=== PATIENT | female | born 1980 | race Caucasian/White ===

== ENCOUNTER 2020-03-12 14:58 | Emergency (ER) | payer OTHER ==
[2020-03-12 15:10] VITALS: BP 90/57; PULSE 69; BMI 22.3
--- OUTSIDE RECORDS SUMMARY | 2020-03-12 15:19 | XMS ---
:1980 Author Organization [facility] Support Name Relationship Address Phone SE Unavailable Unavailable Unavailable [employer] [address] [place] [address] Re-disclosure Warning The records that you are about to access may contain information from federally- assisted alcohol or drug abuse programs. If such information is present, then the following federally mandated warning applies: This information has been disclosed to you from records protected by federal confidentiality rules (42 CFR part 2). The federal rules prohibit you from making any further disclosure of this information unless further disclosure is expressly permitted by the written consent of the person to whom it pertains or as otherwise permitted by 42 CFR part 2. A general authorization for the release of medical or other information is NOT sufficient for this purpose. The Federal rules restrict any use of the information to criminally investigate or prosecute any alcohol or drug abuse patient.The records that you are about to access may contain highly sensitive health information, the redisclosure of which is protected by Article 27-F of the [facility] Public Health law. If you continue you may haveaccess to information: Regarding HIV / AIDS; Provided by facilities licensed or operated by the [facility] Office of Mental Health; or Provided by the [facility] Office for People With Developmental Disabilities. If such information is present, then the following [facility] mandated warning applies: This information has been disclosed to you from confidential records which are protected by state law. State law prohibits you from making any further disclosure of this information without the specific written consent of the person to whom it pertains, or as otherwise permitted by law. Any unauthorized further disclosure in violation of state law may result in a fine or longterm sentence or both. A general authorization for the release of medical or other information is NOT sufficient authorization for further disclosure. Insurance Providers Payer name Policy type Policy ID Covered Covered green party's Policy P felicia / Coverage green party ID relationship to [employer] type martinez [facility] [id number] SP [id number] FIRST Results ID Date Data Source [id number] 12/16/2019 05:30:00 PM EDT [facility] Name Value Range Interpretation Description Data Sup porting Code Source(s) Document(s ) SARS-CoV-2 [facility] (COVID-19) RNA [Presence] in Respiratory specimen by HELEN with probe detection This lab was ordered by [facility] and reported by [facility] Procedure
[2020-03-12] MEDS ORDERED: DIPHTH,PERTUSS(ACELL),TET 0.5 ML DISP.SYRIN IM ONE ×2 (16:09→16:29)
--- NOTE | 2020-03-12 16:28 | PDOC ---
History of Present Illness - General Chief Complaint: Laceration Stated Complaint: INJURY Time Seen by Provider: 03/12/20 15:31 History Source: Patient Exam Limitations: No Limitations - History of Present Illness Initial Comments: 03/12/20 16:23 HISTORY OF PRESENT ILLNESS: 40-year-old woman denies medical history presents to the emergency department for evaluation of laceration to the left thumb while preparing lunch today. Patient states she was making a salad and was cutting through peppers she accidentally sliced through the distal tip of her left thumb. Patient cleaned out her thumb with tap water and iodine and then applied sterile dressing and ice to thumb prior to arrival in the ER. Patient is right- hand dominant. 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 No recent travel or sick contacts. PAST MEDICAL HISTORY: Denies past medical history SURGICAL HISTORY: Denies ALLERGIES: No known drug allergies REVIEW OF SYSTEMS General/Constitutional: Denies fever or chills. Denies weakness, weight change. HEENT: Denies change in vision. Denies ear pain or discharge. Denies sore throat. Cardiovascular: Denies chest pain or shortness of breath. Respiratory: Denies cough, wheezing, or hemoptysis. Gastrointestinal: Denies nausea, vomiting, diarrhea or constipation. Denies rectal bleeding. Genitourinary: Denies dysuria, frequency, or change in urination. Musculoskeletal: Denies joint or muscle swelling or pain. Denies neck or back pain. Skin and breasts: See HPI Neurologic: Denies headache, vertigo, loss of consciousness, or loss of sensation. Psychiatric: Denies depression or anxiety. Endocrine: Denies increased thirst. Denies abnormal weight change. Hematologic/Lymphatic: Denies anemia, easy bleeding, or history of blood clots. Allergic/Immunologic: Denies hives or skin allergy. Denies latex allergy. PHYSICAL EXAM General Appearance: Well-appearing, appropriately dressed. No apparent distress, no intoxication. Musculoskeletal/Extremities: Normal inspection. FROM of all extremities, normal capillary refill. Pelvis Stable. No CVA tenderness. No tenderness to extremities, pedal edema, swelling, erythema or deformity. Integumentary: Approximate 1 cm superficial linear laceration present to distal tip of the left thumb. Laceration extends through the nail and into the nailbed but is linear and fingernail is maintaining approximation. Neurovascularly intact. Past History - Medical History Allergies/Adverse Reactions: Allergies Allergy/AdvReac Type Severity Reaction Status Date / Time No Known Allergies Allergy Verified 03/12/20 15:10 COPD: No - Reproductive History Is Patient Now?: No - Psycho-Social/Smoking History Smoking History: Never smoked *Physical Exam - Vital Signs Last Vital Signs Temp Pulse Resp BP Pulse Ox 69 18 90/57 L 100 03/12/20 15:09 03/12/20 15:09 03/12/20 15:09 03/12/20 15:09 Procedures - Consent Consent obtained: Verbal, From Patient - Laceration/Wound Repair Left Distal Finger 1st digit Wound Length: to 2.5 cm Wound Explored: clean Wound's Depth, Shape: superficial, linear Irrigated w/ Saline: Yes Betadine Prep: Yes Anesthesia: 1% Lidocaine Amount of Anesthetic (ccs): 4 Wound Debrided: minimal Wound Repaired With: Sutures Suture Size/Type: 5:0 Number of Sutures: 3 Layer Closure: No Sterile Dressing Applied: Yes Splint Applied: No Sling Applied: No Progress: 03/12/20 16:30 Patient tolerated well Medical Decision Making - Medical Decision Making 03/12/20 16:26 A/P: 40-year-old female with laceration to distal tip of the left thumb Laceration repair-see procedure note for details [facility] Discharge home Portions of this note have been documented using voice recognition software. As a result, errors may occur in the information assurance process. Effort has been made to correct all grammatical and information assurance error, but some may have been missed which may produce sporadic inaccurate information assurance or nonsensical phrases. Discharge - Discharge Information Problems reviewed: Yes Clinical Impression/Diagnosis: Laceration of left thumb with damage to nail Qualifiers: Encounter type: initial encounter Foreign body presence: without foreign body Qualified Code(s): S61.112A - Laceration without foreign body of left thumb with damage to nail, initial encounter Condition: Stable Disposition: HOME - Admission No - Follow up/Referral Referrals: Phuong Seo [Primary Care Provider] - - Patient Discharge Instructions Additional Instructions: Keep wound clean and dry Avoid strenuous activity/exercise to create a hot or sweaty environment until sutures are removed Reapply bacitracin ointment 2 times a day until sutures are removed Return to emergency Department or private physician in 7-10 days for suture removal May use Tylenol or Motrin for pain relief Return immediately to emergency department for redness, swelling, pain, or signs of infection - Post Discharge Activity Work/Back to School Note: Back to Work
== END 2020-03-12 17:05 | disposition home or self-care (01) ==
LOC: JERFT 14:58 → JER 14:58 → JERFT 17:05
PROC: 0HQGXZZ Repair Left Hand Skin, External Approach (ICD-10-PCS; principal; 2020-03-12)
PROC: 3E0234Z Introduction of Serum, Toxoid and Vaccine into Muscle, Percutaneous Approach (ICD-10-PCS; 2020-03-12)
DX: S61.112A Laceration without foreign body of left thumb with damage to nail, initial encounter (principal)
CPT/HCPCS: 90715; 99284-25